=== PATIENT | female | born 1995 | race Caucasian/White ===

== ENCOUNTER 2017-06-29 14:21 | Emergency (ER) | payer OTHER ==
[~2017-06-29] VITALS: Ht 165.1 cm; Wt 50.0 kg
[2017-06-29] MEDS ORDERED: SODIUM CHLOR 0.9% 1000 ML INJ 1,000 ML IV SCH (14:28)
--- NOTE | 2017-06-29 14:28 | PD ---
HPI Chief Complaint: Altered mental status Time Seen by Provider: 14:24 Travel History International Travel<30 days: No Contact w/Intl Traveler<30days: No Traveled to known affect area: No History of Present Illness HPI [place], altered and not normally responsive. Per friends she has been drinking today has had approximately 15 alcoholic drinks in the span of about 2 hours. Patient is here for spring break upon arousal the patient was very emotional and crying and sobbing stating that she had taken 10 Lexapro and multiple melatonin along with alcohol because she wanted to go sleep. Patient stated that she is a" cutter" and that despite her parents passed out for a cannot cure her of her depression Unknown, if there is any past medical surgical history or allergies due to the patient's mentation [facility] Social History Tobacco Use: No Allergies-Medications (Allergen,Severity, Reaction): Coded Allergies: No Allergy Information Available (Unverified , 06/29/17) Reported Meds & Prescriptions Reported Meds & Active Scripts Active Reported Melatonin 1 Mg Tablet Unknown Dose Lexapro (Escitalopram Oxalate) 5 Mg Tab Unknown Dose PO DAILY Review of Systems ROS Limitations: Altered Mental Status General / Constitutional: No: Fever Eyes: No: Visual changes HENT: No: Headaches Cardiovascular: No: Chest Pain or Discomfort Respiratory: No: Shortness of Breath Gastrointestinal: No: Abdominal Pain Genitourinary: No: Dysuria Musculoskeletal: No: Pain Skin: No Rash Neurologic: No: Weakness Psychiatric: No: Depression Endocrine: No: Polydipsia Hematologic/Lymphatic: No: Easy Bruising Physical Exam Exam Limitations: Intoxication, Altered Mental Status Narrative GENERAL: Smell of EtOH SKIN: Warm and dry. HEAD: Atraumatic. Normocephalic. EYES: Pupils equal and round. No scleral icterus. No injection or drainage. ENT: No nasal bleeding or discharge. Mucous membranes pink and moist. NECK: Trachea midline. No JVD. CARDIOVASCULAR: Regular rate and rhythm. RESPIRATORY: No accessory muscle use. Clear to auscultation. Breath sounds equal bilaterally. GASTROINTESTINAL: Abdomen soft, non-tender, nondistended. Hepatic and splenic margins not palpable. MUSCULOSKELETAL: Extremities without clubbing, cyanosis, or edema. No obvious deformities. NEUROLOGICAL: Awake and confused. Motor grossly within normal limits. Five out of 5 muscle strength in the arms and legs. Slurred speech, nonsensical speech. PSYCHIATRIC: Unable to assess, patient appears intoxicated and is unable to answer questions appropriately Data Data Last Documented VS Vital Signs Date Time Temp Pulse Resp B/P (MAP) Pulse Ox O2 Delivery O2 Flow Rate FiO2 06/29/17 14:58 110 25 137/89 (105) 100 Orders Orders Complete Blood Count With Diff (06/29/17 14:28) Comprehensive Metabolic Panel (06/29/17 14:28) Prothrombin Time / Inr (Pt) (06/29/17 14:28) Act Partial Throm Time (Ptt) (06/29/17 14:28) Thyroid Stimulating Hormone (06/29/17 14:28) Urinalysis - C+S If Indicated (06/29/17 14:28) Chest, Single Ap (06/29/17 14:28) Ct Brain W/O Iv Contrast(Rout) (06/29/17 14:28) Blood Glucose (06/29/17 14:28) Ecg Monitoring (06/29/17 14:28) Iv Access Insert/Monitor (06/29/17 14:28) Cath For Specimen (06/29/17 14:28) Oximetry (06/29/17 14:28) Sodium Chloride 0.9% Flush (Ns Flush) (06/29/17 14:30) Sodium Chlor 0.9% 1000 Ml Inj (Ns 1000 M (06/29/17 14:28) Drug Screen, Random Urine (06/29/17 14:28) Alcohol (Ethanol) (06/29/17 14:28) Tylenol (Acetaminophen) (06/29/17 14:28) Salicylates (Aspirin) (06/29/17 14:28) Haloperidol Inj (Haldol Inj) (06/29/17 14:30) Labs Laboratory Tests Test 06/29/17 14:50 4 14:59 White Blood Count 8.4 TH/MM3 Red Blood Count 5.11 MIL/MM3 Hemoglobin 18.0 GM/DL Hematocrit 48.0 % Mean Corpuscular Volume 93.9 FL Mean Corpuscular Hemoglobin 35.2 PG Mean Corpuscular Hemoglobin Concent 37.5 % Red Cell Distribution Width 13.7 % Platelet Count 398 TH/MM3 Mean Platelet Volume 7.3 FL Neutrophils (%) (Auto) 52.2 % Lymphocytes (%) (Auto) 40.5 % Monocytes (%) (Auto) 6.2 % Eosinophils (%) (Auto) 0.5 % Basophils (%) (Auto) 0.6 % Neutrophils # (Auto) 4.4 TH/MM3 Lymphocytes # (Auto) 3.4 TH/MM3 Monocytes # (Auto) 0.5 TH/MM3 Eosinophils # (Auto) 0.0 TH/MM3 Basophils # (Auto) 0.1 TH/MM3 CBC Comment AUTO DIFF Differential Comment AUTO DIFF CONFIRMED Platelet Estimate NORMAL Platelet Morphology Comment NORMAL Prothrombin Time 10.0 SEC Prothromb Time International Ratio 1.0 RATIO Activated Partial Thromboplast Time 26.4 SEC Urine Color LIGHT-YELLOW Urine Turbidity CLEAR Urine pH 6.0 Urine Specific [place] 1.003 Urine Protein NEG mg/dL Urine Glucose (UA) NEG mg/dL Urine Ketones NEG mg/dL Urine Occult Blood SMALL Urine Nitrite NEG Urine Bilirubin NEG Urine Urobilinogen LESS THAN 2.0 MG/DL Urine Leukocyte Esterase NEG Urine RBC LESS THAN 1 /hpf Urine WBC 1 /hpf Urine Squamous Epithelial Cells <1 /hpf Microscopic Urinalysis Comment CATH-CULT NOT IND Salicylates Level LESS THAN 1.7 MG/DL Blood Urea Nitrogen 7 MG/DL Creatinine 0.76 MG/DL Random Glucose 91 MG/DL Total Protein 9.3 GM/DL Albumin 5.0 GM/DL Calcium Level 9.0 MG/DL Alkaline Phosphatase 64 U/L Aspartate Amino Transf (AST/SGOT) 29 U/L Alanine Aminotransferase (ALT/SGPT) 23 U/L Total Bilirubin 0.4 MG/DL Sodium Level 145 MEQ/L Potassium Level 3.7 MEQ/L Chloride Level 110 MEQ/L Carbon Dioxide Level 22.2 MEQ/L Anion Gap 13 MEQ/L Estimat Glomerular Filtration Rate 96 ML/MIN Thyroid Stimulating Hormone 3rd Gen 0.629 uIU/ML Acetaminophen Level LESS THAN 2.0 MCG/ML Ethyl Alcohol Level 306 MG/DL [facility] Medical Decision Making Medical Screen Exam Complete: Yes Emergency Medical Condition: Yes Medical Record Reviewed: Yes Differential Diagnosis Intoxication versus intracranial hemorrhage versus hypoglycemia versus electrolyte abnormalities Narrative Course Patient's alcohol level 306 Negative salicylates, negative Tylenol level UA is negative for any UTI Coagulation profile within normal limits CBC consistent with hemoconcentration of 18/48, otherwise normal platelet count no left shift and no leukocytosis Chemistry all electrolytes are all within normal limits, normal kidney liver functions and also normal TSH screen Chest x-ray read by radiologist as no acute disease Head CT read by radiologist as no acute intracranial disease Diagnosis Primary Impression: Altered mental status due to alcohol intoxication Additional Instructions: Patient was advisable her findings, and advised to be discharged to a responsible green party Marcelo Murphy MD Jun 29, 2017 14:28
[2017-06-29] MEDS ORDERED: HALOPERIDOL LACTATE 5 MG/ML AMP IV PUSH ONE (14:30)
[2017-06-29] MEDS ORDERED: SODIUM CHLORIDE 0.9% FLUSH 10 ML FLUSH IV FLUSH PRN (14:30)
[2017-06-29] MEDS ORDERED: MELA1TAB32 (14:50)
[2017-06-29] MEDS ORDERED: LEXA5TAB PO (14:50)
[2017-06-29 14:58] VITALS: BP 137/89; PULSE 110; RESP 25; O2SAT 100
[2017-06-29 15:11] LABS: BILIRUBIN, URINE NEG (NEG); BLOOD, URINE SMALL (NEG); GLUCOSE,URINE NEG (NEG); KETONE, URINE NEG (NEG); NITRITE,URINE NEG (NEG); SQUAMOUS EPITHELIAL CELL URINE <1 /hpf (0-5); URINE COLOR LIGHT-YELLOW (YELLW/STRAW); URINE LEUKOCYTE ESTERASE NEG (NEG)
[2017-06-29 15:24] LABS: AUTOMATED NEUTROPHIL # 4.4 TH/MM3 (1.8-7.7); BASOPHIL # 0.1 TH/MM3 (0-0.2); BASOPHIL % 0.6 % (0.0-2.0); EOSINOPHIL % 0.5 % (0.0-4.0); LYMPH % 40.5 % (9.0-44.0); LYMPHOCYTE # 3.4 TH/MM3 (1.0-4.8); MEAN CELL VOLUME 93.9 FL (80.0-100.0); MEAN CORPUSCULAR HEMOGLOBIN 35.2 PG (27.0-34.0); MEAN PLATELET VOLUME 7.3 FL (7.0-11.0); MONO % 6.2 % (0.0-8.0); MONOCYTE # 0.5 TH/MM3 (0-0.9); NEUT % 52.2 % (16.0-70.0); PLATELET COUNT 398 TH/MM3 (150-450); RED BLOOD COUNT 5.11 MIL/MM3 (4.00-5.30); RED CELL DISTRIBUTION WIDTH 13.7 % (11.6-17.2); WHITE BLOOD COUNT 8.4 TH/MM3 (4.0-11.0)
[2017-06-29 15:37] LABS: MEAN CORPUSCULAR HGB CONC 37.5 % (32.0-36.0)
--- NOTE | 2017-06-29 15:39 | RADRPT ---
EXAM DATE/TIME: 06/29/2017 14:51 [facility] COMPARISON: No previous studies available for comparison. INDICATIONS : Altered mental status, [place] MEDICAL HISTORY : None. SURGICAL HISTORY : None. ENCOUNTER: Initial ACUITY: 1 day PAIN SCORE: Non-responsive. LOCATION: Bilateral chest FINDINGS: A single view of the chest demonstrates the lungs to be symmetrically aerated without evidence of mas s, infiltrate or effusion. The cardiomediastinal contours are unremarkable. Osseous structures are intact. CONCLUSION: No acute disease. Fidel Stephens MD on June 29, 2017 at 15:36 Board Certified Radiologist. This report was verified electronically.
[2017-06-29 15:47] LABS: AST (GOT) 29 U/L (15-37); BICARBONATE 22.2 MEQ/L (21.0-32.0); BLOOD UREA NITROGEN 7 MG/DL (7-18); CHLORIDE 110 MEQ/L (98-107); CREATININE 0.76 MG/DL (0.50-1.00); GLOMERULAR FILTRATION RATE 96 ML/MIN (>89); GLUCOSE,RANDOM 91 MG/DL (74-106); SODIUM (NA) 145 MEQ/L (136-145)
[2017-06-29 15:57] LABS: ACETAMINOPHEN LESS THAN 2.0 MCG/ML (10.0-30.0); ALKALINE PHOSPHATASE 64 U/L (45-117); ALT (GPT) 23 U/L (10-53); TOTAL BILIRUBIN ADULT 0.4 MG/DL (0.2-1.0); TOTAL PROTEIN 9.3 GM/DL (6.4-8.2)
--- NOTE | 2017-06-29 16:00 | RADRPT ---
EXAM DATE/TIME: 06/29/2017 15:47 [facility] COMPARISON: No previous studies available for comparison. INDICATIONS : Altered mental status RADIATION DOSE: 44.21 CTDIvol (mGy) MEDICAL HISTORY : None SURGICAL HISTORY : None. ENCOUNTER: Initial ACUITY: 1 day PAIN SCALE: 0/10 LOCATION: cranial TECHNIQUE: Multiple contiguous axial images were obtained of the head. Using automated exposure control and adj ustment of the mA and/or kV according to patient size, radiation dose was kept as low as reasonably a chievable to obtain optimal diagnostic quality images. DICOM format image data is available electro nically for review and comparison. FINDINGS: CEREBRUM: The ventricles are normal for age. No evidence of midline shift, mass lesion, hemorrhage or acute in farction. No extra-axial fluid collections are seen. POSTERIOR FOSSA: The cerebellum and brainstem are intact. The 4th ventricle is midline. The cerebellopontine angle i s unremarkable. EXTRACRANIAL: The visualized portion of the orbits is intact. SKULL: The calvaria is intact. No evidence of skull fracture. CONCLUSION: No acute intracranial disease. Fidel Stephens MD on June 29, 2017 at 15:57 Board Certified Radiologist. This report was verified electronically.
== END 2017-06-29 18:19 | disposition home or self-care (01) ==
LOC: NEPD 14:21
DX: F10.129 Alcohol abuse with intoxication, unspecified (principal); F32.9 Major depressive disorder, single episode, unspecified; Y90.8 Blood alcohol level of 240 mg/100 ml or more; Z79.899 Other long term (current) drug therapy
CPT/HCPCS: 70450; 71045; 80053; 80307; 81001; 84443; 85025; 85610; 85730; 96374; 99284; J1630; J7030; P9612